=== PATIENT | male | born 1955 | race Caucasian/White ===

== ENCOUNTER → 2018-01-23 14:12 | Oncology outpatient (ONC) | payer OTHER, SELFPAY ==
--- NOTE | 2018-01-23 14:35 | ONC.CONS ---
History of Present Illness - Data of Consult Primary Care Provider: Maya Frazier DO HEMATOLOGY/ONCOLOGY CONSULTATION NOTE DATE OF SERVICE: JANUARY 23, 2018 PATIENT NAME: DATE OF : 1955 PCP: MAYA FRAZIER DO IDENTIFICATION: Mr. Bailey is a 62-year-old gentleman who was seen in consultation at the request of Dr. Farzier for abnormal CBC. HISTORY OF PRESENT ILLNESS: He presents to clinic alone today. He generally is in very good health with history of some traumatic injuries including a fracture of the right femur from a crush injury suffered at work when his leg was pinned between a boat and the dock. He had a dottie placed which was removed 18 months later. This was back in 1994. Has had some other fractures also hernia repair for right inguinal hernia. He denies any significant medical history, no diabetes, hepatic disease, hepatitis, cirrhosis, pulmonary or cardiac disorders, asthma. No personal history of cancer or blood disorders. He has not received previous chemotherapy radiation treatment. Denies illicit drug use or IV drug abuse. No known history of hepatitis or other chronic infection. He denies recent or recurrent infections. No myalgias, arthralgias or rash. No bruising or bleeding concerns. He recently had an annual physical in August which was reportedly unremarkable. Subsequent lab work from December 11, 2017 showed WBC 5000, 52% neutrophils, 6% bands, 16% lymphocytes, 11% atypical lymphocytes, 8% monocytes, 5% eosinophils, 2% basophils. ANC 2900. Normal morphology. Hemoglobin 16.6, hematocrit 47.4, MCV 88.8, platelet count [id number]. CMP was unremarkable. Prior CBC date 07/17/2016 WBC 7000 ANC 4800, lymphocytes slightly low at 19.7%. Hemoglobin 17.2, hematocrit 51.3, MCV 89.8, platelet count [id number]. May 04, 2015 shows WBC 5500, ANC 3200, lymphocyte percent 27.6. June 29, 1995 WBC 8600 neutrophils 82% for ANC 7061, lymphocytes 8.8%, hemoglobin 12.8, hematocrit 36.1, MCV 87.0, platelet count [id number]. Lab work 1 day prior on June 28, 1995 shows lymphocytes 38.8%. - Consult Narrative Narrative: Jose Roberto Bailey is a 62 year old male HEMATOLOGY/ONCOLOGY CONSULTATION NOTE DATE OF SERVICE: JANUARY 23, 2018 PATIENT NAME: JOSE ROBERTO BAILEY DATE OF : 1955 PCP: IDENTIFICATION: Mr. Bailey is a 62-year-old gentleman who is seen today at the request of for abnormal lymphocyte count. HISTORY OF PRESENT ILLNESS: CC: Miles James MD Home Medications and Allergies Home Medications Medication Instructions Recorded Confirmed Type valacyclovir 500 mg PO QDAY #30 tab 01/22/18 01/23/18 Rx [Shingrix] 1 dose IM 01/23/18 History ibuprofen 200 mg PO Q6-8H PRN 01/23/18 01/23/18 History Allergies Allergy/AdvReac Type Severity Reaction Status Date / Time corn Allergy Mild UNKNOWN Verified 01/23/18 14:37 gluten Allergy Mild UNKNOWN Verified 01/23/18 14:37 honey Allergy Mild UNKNOWN Verified 01/23/18 14:37 oats Allergy Mild UNKNOWN Verified 01/23/18 14:37 Pork/Porcine Containing Allergy Mild UNKNOWN Verified 01/23/18 14:37 Products spinach Allergy Mild UNKNOWN Verified 01/23/18 14:37 Penicillins Allergy Unknown UNKNOWN Verified 01/23/18 14:37 Sulfa (Sulfonamide Allergy Unknown RASH Verified 01/23/18 14:37 Antibiotics) Medical History - Medical, Surgical, Family History Surgical History: Surgical History Status post hernia repair Status post knee surgery Review of Systems Constitutional: able to conduct usual activities, normal activity level, normal exercise tolerance, normal sleep, no weight loss, no poor state of general health Eyes: no change in vision, no double vision, no discharge Ears, nose, mouth, throat: no headaches, no lightheadedness, no epistaxis, no sore throat Cardiovascular: no chest pain, no palpitations, no dyspnea on exertion, no orthopnea, no edema, no heart murmur Respiratory: no shortness of breath, no wheezing, no cough, no sputum production, no hemoptysis, no respiratory infections, no night sweats Gastrointestinal: no change in appetite, no dysphagia, no indigestion, no abdominal pain, no nausea, no hematemesis, no constipation, no change in bowel habits Genitourinary: no urgency, no frequency, no dysuria, no infections Musculoskeletal: no pain, no swelling, no redness, no weakness Integumentary: no rash, no bleeding or bruising, no itching Neurological: no memory loss Psychiatric: no attentional problems, no mood disturbance, no depression Hematologic/Lymphatic: no anemia, no enlarged lymph nodes Exam - Constitutional positive no acute distress, positive average body habitus, positive cooperative - Routine HEENT Exam Head: Present: normocephalic, atraumatic. Absent: cushingoid faces, facial swelling Eye: Present: EOMI, PERRL. Absent: conjunctival icterus, scleral injection, periorbital ecchymosis ENT: Present: mucous membranes moist, oropharynx clear - Routine Neck Exam Present: full ROM. Absent: lymphadenopathy, thyromegaly - Routine Chest/Breast/Axilla Exam Axillae: Absent: lymphadenopathy - Routine Respiratory Exam Present: Clear to auscultation bilaterally. Absent: accessory muscle use, rales, wheezes - Routine Cardiovascular Exam Present: RRR, S1, S2, murmur. Absent: S3 - Routine Abdominal Exam Present: soft, normoactive bowel sounds. Absent: organomegaly Palpation/Percussion: Absent: hepatomegaly, splenomegaly - Routine Extremities Exam Absent: cyanosis, clubbing, edema, joint swelling - Routine Skin Exam Present: intact. Absent: cyanosis, erythema, jaundice, rash, ecchymosis - Routine Neurological Exam Present: alert, oriented X3, normal speech - Routine Psychiatric Exam Present: normal affect, normal thought process, cooperative, good judgment Assessment and Plan - Time Spent with Patient IMPRESSION: 1. Lymphopenia, mild and chronic dating back over 20 years. 2. History of traumatic injuries and skeletal fractures. I reviewed the current and past hematology lab results with him at today's visit. The findings appear to be relatively chronic with occasional worsening on recent draws though these have been infrequent given his overall excellent health. No other cytopenias or evidence on CBC of underlying marrow disorder or other hematologic concern. Findings are not primarily worrisome for hematologic malignancy including leukemia. Primary differential would include chronic viral infection, autoimmune disorder, collagen vascular disease or idiopathic. He has no history of treatment for cancer and is not receive chemotherapy or radiation treatment in the past. No drug use any denies significant alcohol consumption. He does note prior testing for HIV which was negative. No reported high risk behavior or other known exposure. Likelihood is low however given the findings I would recommend repeat lab work and further diagnostic workup pending results. His history does not raise additional concerns for underlying immunodeficiency. We reviewed physiology of blood cell production and signs and symptoms of disorders. He will monitor and I encouraged him to call with new questions or concerns. PLAN: 1. CBC with manual diff, peripheral smear review, lymphocyte subsets, total IgG level and HIV 1, 2 antibody screen. 2. Return appointment here pending results. 3. Monitor for new symptoms and call back as needed. 4. Recommend annual CBC and monitoring. 5. Return appointment here in 1 year or on PRN basis. I thank Dr. Frazier for requesting consultation on this very nice gentleman. DICTATED BY MILES JAMES MD MEDICAL ONCOLOGY AND HEMATOLOGY
--- NOTE | 2018-01-23 14:38 | P.CONONC_ITS ---
History of Present Illness - Data of Consult Primary Care Provider: Maya Frazier DO HEMATOLOGY/ONCOLOGY CONSULTATION NOTE DATE OF SERVICE: JANUARY 23, 2018 PATIENT NAME: DATE OF : 1955 PCP: MAYA FRAZIER DO IDENTIFICATION: Mr. Bailey is a 62-year-old gentleman who was seen in consultation at the request of Dr. Frazier for abnormal CBC. HISTORY OF PRESENT ILLNESS: He presents to clinic alone today. He generally is in very good health with history of some traumatic injuries including a fracture of the right femur from a crush injury suffered at work when his leg was pinned between a boat and the dock. He had a dottie placed which was removed 18 months later. This was back in 1994. Has had some other fractures also hernia repair for right inguinal hernia. He denies any significant medical history, no diabetes, hepatic disease, hepatitis, cirrhosis, pulmonary or cardiac disorders, asthma. No personal history of cancer or blood disorders. He has not received previous chemotherapy radiation treatment. Denies illicit drug use or IV drug abuse. No known history of hepatitis or other chronic infection. He denies recent or recurrent infections. No myalgias, arthralgias or rash. No bruising or bleeding concerns. He recently had an annual physical in August which was reportedly unremarkable. Subsequent lab work from December 11, 2017 showed WBC 5000, 52% neutrophils, 6% bands, 16% lymphocytes, 11% atypical lymphocytes, 8% monocytes, 5% eosinophils, 2% basophils. ANC 2900. Normal morphology. Hemoglobin 16.6, hematocrit 47.4, MCV 88.8, platelet count [id number]. CMP was unremarkable. Prior CBC date 07/17/2016 WBC 7000 ANC 4800, lymphocytes slightly low at 19.7%. Hemoglobin 17.2, hematocrit 51.3, MCV 89.8, platelet count [id number]. May 04, 2015 shows WBC 5500, ANC 3200, lymphocyte percent 27.6. June 29, 1995 WBC 8600 neutrophils 82% for ANC 7061, lymphocytes 8.8%, hemoglobin 12.8, hematocrit 36.1, MCV 87.0, platelet count [id number]. Lab work 1 day prior on June 28, 1995 shows lymphocytes 38.8%. - Consult Narrative Narrative: Jose Roberto Bailey is a 62 year old male HEMATOLOGY/ONCOLOGY CONSULTATION NOTE DATE OF SERVICE: JANUARY 23, 2018 PATIENT NAME: JOSE ROBERTO BAILEY DATE OF : 1955 PCP: IDENTIFICATION: Mr. Bailey is a 62-year-old gentleman who is seen today at the request of for abnormal lymphocyte count. HISTORY OF PRESENT ILLNESS: CC: Miles James MD Home Medications and Allergies Home Medications Medication Instructions Recorded Confirmed Type valacyclovir 500 mg PO QDAY #30 tab 01/22/18 01/23/18 Rx [Shingrix] 1 dose IM 01/23/18 History ibuprofen 200 mg PO Q6-8H PRN 01/23/18 01/23/18 History Allergies Allergy/AdvReac Type Severity Reaction Status Date / Time corn Allergy Mild UNKNOWN Verified 01/23/18 14:37 gluten Allergy Mild UNKNOWN Verified 01/23/18 14:37 honey Allergy Mild UNKNOWN Verified 01/23/18 14:37 oats Allergy Mild UNKNOWN Verified 01/23/18 14:37 Pork/Porcine Containing Allergy Mild UNKNOWN Verified 01/23/18 14:37 Products spinach Allergy Mild UNKNOWN Verified 01/23/18 14:37 Penicillins Allergy Unknown UNKNOWN Verified 01/23/18 14:37 Sulfa (Sulfonamide Allergy Unknown RASH Verified 01/23/18 14:37 Antibiotics) Medical History - Medical, Surgical, Family History Surgical History: Surgical History Status post hernia repair Status post knee surgery Review of Systems Constitutional: able to conduct usual activities, normal activity level, normal exercise tolerance, normal sleep, no weight loss, no poor state of general health Eyes: no change in vision, no double vision, no discharge Ears, nose, mouth, throat: no headaches, no lightheadedness, no epistaxis, no sore throat Cardiovascular: no chest pain, no palpitations, no dyspnea on exertion, no orthopnea, no edema, no heart murmur Respiratory: no shortness of breath, no wheezing, no cough, no sputum production , no hemoptysis, no respiratory infections, no night sweats Gastrointestinal: no change in appetite, no dysphagia, no indigestion, no abdominal pain, no nausea, no hematemesis, no constipation, no change in bowel habits Genitourinary: no urgency, no frequency, no dysuria, no infections Musculoskeletal: no pain, no swelling, no redness, no weakness Integumentary: no rash, no bleeding or bruising, no itching Neurological: no memory loss Psychiatric: no attentional problems, no mood disturbance, no depression Hematologic/Lymphatic: no anemia, no enlarged lymph nodes Exam - Constitutional positive no acute distress, positive average body habitus, positive cooperative - Routine HEENT Exam Head: Present: normocephalic, atraumatic. Absent: cushingoid faces, facial swelling Eye: Present: EOMI, PERRL. Absent: conjunctival icterus, scleral injection, periorbital ecchymosis ENT: Present: mucous membranes moist, oropharynx clear - Routine Neck Exam Present: full ROM. Absent: lymphadenopathy, thyromegaly - Routine Chest/Breast/Axilla Exam Axillae: Absent: lymphadenopathy - Routine Respiratory Exam Present: Clear to auscultation bilaterally. Absent: accessory muscle use, rales , wheezes - Routine Cardiovascular Exam Present: RRR, S1, S2, murmur. Absent: S3 - Routine Abdominal Exam Present: soft, normoactive bowel sounds. Absent: organomegaly Palpation/Percussion: Absent: hepatomegaly, splenomegaly - Routine Extremities Exam Absent: cyanosis, clubbing, edema, joint swelling - Routine Skin Exam Present: intact. Absent: cyanosis, erythema, jaundice, rash, ecchymosis - Routine Neurological Exam Present: alert, oriented X3, normal speech - Routine Psychiatric Exam Present: normal affect, normal thought process, cooperative, good judgment Assessment and Plan - Time Spent with Patient IMPRESSION: 1. Lymphopenia, mild and chronic dating back over 20 years. 2. History of traumatic injuries and skeletal fractures. I reviewed the current and past hematology lab results with him at today's visit. The findings appear to be relatively chronic with occasional worsening on recent draws though these have been infrequent given his overall excellent health. No other cytopenias or evidence on CBC of underlying marrow disorder or other hematologic concern. Findings are not primarily worrisome for hematologic malignancy including leukemia. Primary differential would include chronic viral infection, autoimmune disorder, collagen vascular disease or idiopathic. He has no history of treatment for cancer and is not receive chemotherapy or radiation treatment in the past. No drug use any denies significant alcohol consumption. He does note prior testing for HIV which was negative. No reported high risk behavior or other known exposure. Likelihood is low however given the findings I would recommend repeat lab work and further diagnostic workup pending results. His history does not raise additional concerns for underlying immunodeficiency. We reviewed physiology of blood cell production and signs and symptoms of disorders. He will monitor and I encouraged him to call with new questions or concerns. PLAN: 1. CBC with manual diff, peripheral smear review, lymphocyte subsets, total IgG level and HIV 1, 2 antibody screen. 2. Return appointment here pending results. 3. Monitor for new symptoms and call back as needed. 4. Recommend annual CBC and monitoring. 5. Return appointment here in 1 year or on PRN basis. I thank Dr. Frazier for requesting consultation on this very nice gentleman. DICTATED BY MILES JAMES MD MEDICAL ONCOLOGY AND HEMATOLOGY
[2018-01-23 14:42] VITALS: BP 110/79; PULSE 58; RESP 14; TEMP 37.1; O2SAT 99
--- NOTE | 2018-01-23 14:55 | ONC.NAV ---
Description: New Pt Intro Activity: Met with pt to introduce myself as the Pt Ariel/SUPERVISOR ANODIZING, offer services card, and assess immediate needs. Pt is here primarily to discuss abnormal lab findings per his supervisory historian. SUPERVISOR ANODIZING confirmed his contacts in the EMR: [facility] and primary/secondary contacts. He expresses no immediate needs at this time. Plan: SUPERVISOR ANODIZING encouraged him to contact me in the future should he need assistance.
--- NOTE | 2018-01-29 14:33 | ONC.NAV ---
Per [employer] at patients insurance no authorization is required for [id number] with DX code [id number]. Phone number
--- NOTE | 2018-02-12 11:03 | ONC.NAV ---
called patient multiple times to schedule for his lab draw and follow up. Patient does not have vm set up at this time. This is the only number he has listed. Will wait for patient to call back to schedule.
== END ==
PROVIDERS: PCP Family Medicine; Visit Provider Internal Medicine Hematology & Oncology
DX: D72.810 Lymphocytopenia (principal)
CPT/HCPCS: 99204; 99214

== ENCOUNTER → 2018-11-25 07:00 | Outpatient (CLI) | payer OTHER, SELFPAY ==
[2018-11-25 08:04] LABS: Appearance Urine UA CLEAR; Bilirubin Urine UA NEGATIVE (NEGATIVE); Color Urine UA YELLOW; Glucose Urine UA NEGATIVE (Negative); Ketones Urine UA NEGATIVE (NEGATIVE); Leukocyte Esterase Urine UA NEGATIVE (NEGATIVE); Nitrite Urine UA NEGATIVE (Negative); Occult Blood Urine UA NEGATIVE (Negative); Protein Urine UA NEGATIVE (Negative); Specific Gravity Urine UA 1.025 (1.000-1.035); Urobilinogen Urine UA 0.2 E.U./dL (0.2)
[2018-11-25 08:13] LABS: Add Manual Diff / Slide Review NO; Basophils Absolute Auto 100 /uL (0-100); Basophils Percent Auto 0.9 % (0-2); Eosinophils Absolute Auto 200 /uL (0-450); Eosinophils Percent Auto 2.9 % (2-4); Hematocrit 50.4 % (41-53); Hemoglobin 17.2 g/dL (13.5-17.5); Lymphocytes Absolute Auto 1500 /uL (1100-4500); Lymphocytes Percent Auto 25.6 % (25-40); Mean Corpuscular HGB Conc 34.1 % (30-36); Mean Corpuscular Hemoglobin 31.1 PG (26-34); Mean Corpuscular Volume 91.3 fL (80-100); Monocytes Absolute Auto 500 /uL (0-900); Monocytes Percent Auto 9.1 % (3-14); Neutrophils Absolute Auto 3700 /uL (1500-7000); Neutrophils Percent Auto 61.5 % (50-75); Platelet Count 239 X10^3/uL (150-400); Red Blood Cell Count 5.52 X10^6/uL (4.5-5.9); Red Cell Distribution Width 13.4 % (11.6-14.8)
[2018-11-25 08:31] LABS: Alanine Aminotransferase 37 IU/L (21-72); Albumin 3.9 g/dL (3.5-5.0); Albumin Globulin Ratio 1.5 (1.0-2.8); Alkaline Phosphatase 69 U/L (38-126); Aspartate Aminotransferase 35 IU/L (17-59); Bilirubin Total 0.6 mg/dL (0.2-1.3); Blood Urea Nitrogen 20 mg/dL (9-20); Calcium 9.1 mg/dL (8.4-10.2); Carbon Dioxide 27 mmol/L (22-32); Chloride 105 mmol/L (98-107); Cholesterol 188 mg/dL (140-199); Estimated Glomerular Filt Rate > 60.0 mL/min (>60); Globulin 2.6 g/dL (1.7-4.1); Glucose 98 mg/dL (80-110); HDL Cholesterol 54 mg/dL (40-60); LDL Cholesterol Calculated 124 mg/dL (<100); Potassium 4.5 mmol/L (3.4-5.1); Sodium 140 mmol/L (137-145); Total Protein 6.5 g/dL (6.3-8.2); Triglycerides 52 mg/dL (35-150)
[2018-11-25 09:01] LABS: Thyroid Stimulating Hormone 1.29 uIU/mL (0.47-4.68)
[2018-11-25 09:03] LABS: HEMOLYSIS < 15 (0-50); Prostate Specific Antigen Scrn 0.611 ng/mL (0.1-4.0)
== END ==
PROVIDERS: PCP Family Medicine; Visit Provider Family Medicine
DX: Z00.00 Encounter for general adult medical examination without abnormal findings (principal); Z13.220 Encounter for screening for lipoid disorders; Z13.29 Encounter for screening for other suspected endocrine disorder; Z12.5 Encounter for screening for malignant neoplasm of prostate
CPT/HCPCS: 36415; 80053; 80061; 81003; 84443; 85025; G0103

== ENCOUNTER → 2020-11-10 07:05 | Outpatient (CLI) | payer OTHER, SELFPAY ==
[2020-11-10 08:40] LABS: Add Manual Diff / Slide Review NO; Basophils Absolute Auto 0 /uL (0-100); Basophils Percent Auto 0.8 % (0-2); Eosinophils Absolute Auto 200 /uL (0-450); Eosinophils Percent Auto 2.8 % (2-4); Hematocrit 48.5 % (41-53); Hemoglobin 16.7 g/dL (13.5-17.5); Lymphocytes Absolute Auto 1200 /uL (1100-4500); Lymphocytes Percent Auto 20.6 % (25-40); Mean Corpuscular HGB Conc 34.5 % (30-36); Mean Corpuscular Volume 89.8 fL (80-100); Monocytes Absolute Auto 500 /uL (0-900); Monocytes Percent Auto 7.7 % (3-14); Neutrophils Absolute Auto 4100 /uL (1500-7000); Neutrophils Percent Auto 68.1 % (50-75); Platelet Count 221 X10^3/uL (150-400); Red Cell Distribution Width 13.6 % (11.6-14.8)
[2020-11-10 08:59] LABS: Alanine Aminotransferase 42 IU/L (<50); Albumin 3.8 g/dL (3.5-5.0); Albumin Globulin Ratio 1.4 (1.0-2.8); Alkaline Phosphatase 72 U/L (38-126); Aspartate Aminotransferase 41 IU/L (17-59); BUN Creatinine Ratio 21.9 (6-22); Bilirubin Total 0.5 mg/dL (0.2-1.3); Blood Urea Nitrogen 23 mg/dL (9-20); Carbon Dioxide 30 mmol/L (22-32); Chloride 104 mmol/L (98-107); Cholesterol 191 mg/dL (140-199); Estimated Glomerular Filt Rate > 60.0 mL/min (>60); Globulin 2.8 g/dL (1.7-4.1); Glucose 110 mg/dL (80-110); HDL Cholesterol 49 mg/dL (40-60); HEMOLYSIS < 15 (0-50); LDL Cholesterol Calculated 131 mg/dL (<100); Potassium 4.2 mmol/L (3.4-5.1); Sodium 138 mmol/L (137-145); Total Protein 6.6 g/dL (6.3-8.2); Triglycerides 55 mg/dL (35-150)
[2020-11-10 09:45] LABS: Thyroid Stimulating Hormone 1.07 uIU/mL (0.47-4.68)
[2020-11-11 07:56] LABS: PSA Free % 27.8 % (.); PSA, Total 0.9 ng/mL (0.0-4.0)
== END ==
PROVIDERS: PCP Physician Assistant; Referring Provider Physician Assistant; Visit Provider Physician Assistant
DX: Z13.29 Encounter for screening for other suspected endocrine disorder (principal); Z12.5 Encounter for screening for malignant neoplasm of prostate; Z13.220 Encounter for screening for lipoid disorders
CPT/HCPCS: 36415; 80053; 80061; 84153; 84154; 84443; 85025

== ENCOUNTER → 2022-01-16 07:06 | Outpatient (CLI) | payer OTHER, SELFPAY ==
[2022-01-16 07:51] LABS: Add Manual Diff / Slide Review NO; Basophils Absolute Auto 0 /uL (0-100); Basophils Percent Auto 0.6 % (0-2); Eosinophils Absolute Auto 200 /uL (0-450); Eosinophils Percent Auto 2.8 % (2-4); Hematocrit 47.9 % (41-53); Hemoglobin 16.7 g/dL (13.5-17.5); Lymphocytes Absolute Auto 1300 /uL (1100-4500); Lymphocytes Percent Auto 23.1 % (25-40); Mean Corpuscular HGB Conc 34.9 % (30-36); Mean Corpuscular Volume 88.9 fL (80-100); Monocytes Absolute Auto 500 /uL (0-900); Monocytes Percent Auto 9.1 % (3-14); Neutrophils Absolute Auto 3700 /uL (1500-7000); Neutrophils Percent Auto 64.4 % (50-75); Platelet Count 233 X10^3/uL (150-400); Red Blood Cell Count 5.39 X10^6/uL (4.5-5.9); White Blood Cell Count 5.7 X10^3/uL (4.5-11.0)
[2022-01-16 08:15] LABS: Alanine Aminotransferase 28 IU/L (<50); Albumin 3.9 g/dL (3.5-5.0); Albumin Globulin Ratio 1.4 (1.0-2.8); Alkaline Phosphatase 70 U/L (38-126); Aspartate Aminotransferase 36 IU/L (17-59); BUN Creatinine Ratio 15.2 (6-22); Bilirubin Total 0.8 mg/dL (0.2-1.3); Blood Urea Nitrogen 14 mg/dL (9-20); Calcium 8.6 mg/dL (8.4-10.2); Carbon Dioxide 31 mmol/L (22-32); Chloride 104 mmol/L (98-107); Cholesterol 173 mg/dL (140-199); Estimated Glomerular Filt Rate > 60 mL/min (>60); Globulin 2.7 g/dL (1.7-4.1); Glucose 103 mg/dL (80-110); HDL Cholesterol 50 mg/dL (40-60); HEMOLYSIS < 15 (0-50); LDL Cholesterol Calculated 114 mg/dL (<100); Potassium 4.4 mmol/L (3.4-5.1); Sodium 139 mmol/L (137-145); Total Protein 6.6 g/dL (6.3-8.2); Triglycerides 44 mg/dL (35-150)
== END ==
PROVIDERS: PCP Physician Assistant; Referring Provider Physician Assistant; Visit Provider Physician Assistant
DX: I10 Essential (primary) hypertension (principal); E78.5 Hyperlipidemia, unspecified
CPT/HCPCS: 36415; 80053; 80061; 85025

== ENCOUNTER → 2023-03-29 08:09 | Outpatient (CLI) | payer OTHER, SELFPAY ==
[2023-03-29 09:44] LABS: Alanine Aminotransferase 31 IU/L (<50); Albumin 3.9 g/dL (3.5-5.0); Albumin Globulin Ratio 1.4 (1.0-2.8); Alkaline Phosphatase 57 U/L (38-126); Aspartate Aminotransferase 49 IU/L (17-59); BUN Creatinine Ratio 15.7 (6-22); Bilirubin Total 0.8 mg/dL (0.2-1.3); Blood Urea Nitrogen 14 mg/dL (9-20); Calcium 8.9 mg/dL (8.4-10.2); Carbon Dioxide 29 mmol/L (22-32); Chloride 105 mmol/L (98-107); Cholesterol 191 mg/dL (140-199); Estimated Glomerular Filt Rate > 60 mL/min (>60); Globulin 2.7 g/dL (1.7-4.1); Glucose 101 mg/dL (80-110); HDL Cholesterol 54 mg/dL (40-60); HEMOLYSIS 20 (0-50); LDL Cholesterol Calculated 126 mg/dL (<100); Potassium 4.5 mmol/L (3.4-5.1); Sodium 138 mmol/L (137-145); Total Protein 6.6 g/dL (6.3-8.2); Triglycerides 56 mg/dL (35-150)
[2023-03-29 16:19] LABS: Hep C Virus Ab w/Reflex Quant NEGATIVE s/c (NEGATIVE)
== END ==
PROVIDERS: PCP Nurse Practitioner Family; Referring Provider Nurse Practitioner Family; Visit Provider Nurse Practitioner Family
DX: E78.5 Hyperlipidemia, unspecified (principal); Z11.59 Encounter for screening for other viral diseases; Z13.1 Encounter for screening for diabetes mellitus
CPT/HCPCS: 36415; 80053; 80061; 86803

== ENCOUNTER → 2024-09-09 08:04 | Outpatient (CLI) | payer OTHER, SELFPAY ==
[2024-09-09 08:47] LABS: Add Manual Diff / Slide Review NO; Basophils Absolute Auto 0 /uL (0-100); Basophils Percent Auto 0.7 % (0-2); Eosinophils Absolute Auto 200 /uL (0-450); Eosinophils Percent Auto 3.3 % (2-4); Hematocrit 51.2 % (41-53); Hemoglobin 17.6 g/dL (13.5-17.5); Lymphocytes Absolute Auto 1200 /uL (1100-4500); Lymphocytes Percent Auto 18.7 % (25-40); Mean Corpuscular HGB Conc 34.3 % (30-36); Mean Corpuscular Hemoglobin 31.6 PG (26-34); Mean Corpuscular Volume 92.1 fL (80-100); Monocytes Absolute Auto 500 /uL (0-900); Monocytes Percent Auto 8.3 % (3-14); Neutrophils Absolute Auto 4400 /uL (1500-7000); Platelet Count 237 X10^3/uL (150-400); Red Blood Cell Count 5.56 X10^6/uL (4.5-5.9); Red Cell Distribution Width 13.7 % (11.6-14.8); White Blood Cell Count 6.3 X10^3/uL (4.5-11.0)
[2024-09-09 09:06] LABS: Alanine Aminotransferase 42 IU/L (<50); Albumin 4.2 g/dL (3.5-5.0); Albumin Globulin Ratio 1.8 (1.0-2.8); Alkaline Phosphatase 63 U/L (38-126); Aspartate Aminotransferase 47 IU/L (17-59); BUN Creatinine Ratio 15.7 (6-22); Blood Urea Nitrogen 16 mg/dL (9-20); Calcium 9.6 mg/dL (8.4-10.2); Carbon Dioxide 29 mmol/L (22-32); Chloride 104 mmol/L (98-107); Cholesterol 210 mg/dL (140-199); Estimated Glomerular Filt Rate > 60 mL/min (>60); Globulin 2.4 g/dL (1.7-4.1); Glucose 98 mg/dL (80-110); HDL Cholesterol 63 mg/dL (40-60); HEMOLYSIS 17 (0-50); LDL Cholesterol Calculated 134 mg/dL (<100); Potassium 4.6 mmol/L (3.4-5.1); Sodium 138 mmol/L (137-145); Total Protein 6.6 g/dL (6.3-8.2); Triglycerides 67 mg/dL (35-150)
[2024-09-09 09:36] LABS: Prostate Specific Antigen 1.14 ng/mL (0.10-4.00)
[2024-09-09 10:27] LABS: Hep C Virus Ab w/Reflex Quant NEGATIVE s/c (NEGATIVE)
== END ==
PROVIDERS: Referring Provider Internal Medicine; Visit Provider Internal Medicine
DX: E78.5 Hyperlipidemia, unspecified (principal); Z12.5 Encounter for screening for malignant neoplasm of prostate; Z72.89 Other problems related to lifestyle; Z79.899 Other long term (current) drug therapy
CPT/HCPCS: 36415; 80053; 80061; 84153; 85025; 86803